=== PATIENT | male | born 1945 | race Hispanic/Latino ===

== ENCOUNTER → 2024-10-28 | Outpatient (REF) | payer MEDICARE ==
[~2024-10-28] MED LIST: REGADENOSON 0.4 MG/5 ML SYR IV ONE
== END ==
LOC: NM 08:20
PROVIDERS: ATTEND Internal Medicine Cardiovascular Disease
DX: R00.2 Palpitations (principal); I25.709 Atherosclerosis of coronary artery bypass graft(s), unspecified, with unspecified angina pectoris
CPT/HCPCS: 78452; 93017; A9502; J2785